=== PATIENT | male | born 1955 | race Caucasian/White ===

== ENCOUNTER → 2016-04-06 | Day surgery (SDC) | payer MEDICARE ==
[~2016-04-06] VITALS: Ht 198.1 cm; Wt 133.4 kg
[~2016-04-06] MED LIST: ASCO500C6 PO; COLC0.6C3 PO; CYAN100T PO; MELO-259 PO; Sodium Chloride LOK Flush 10 mL Syringe IV PRN; TEST200V20 IM; VALA1000 PO; VALA100026 PO; fentaNYL-PF 50 mCg/mL 2 mL Inj IVPUSH PRN
[2016-04-06 10:06] VITALS: BP 148/88; PULSE 77; RESP 16; O2SAT 100
[2016-04-06] MEDS: 0.9% Sodium Chloride 1,000 ML IV SCH ×4 (10:12→10:54)
[2016-04-06 10:58] VITALS: BP 143/83; PULSE 67; RESP 16; O2SAT 98
[2016-04-06 11:08] VITALS: BP 140/76; PULSE 64; RESP 16; O2SAT 97
[2016-04-06 11:18] VITALS: BP 133/76; PULSE 70; RESP 16; O2SAT 99
--- NOTE | 2016-04-06 14:52 | ENDO ---
[address] [address] ENDOSCOPY PROCEDURE PATIENT: EILEEN SAMPSON : 1955 MR#: [id number] ADMIT: 04/06/2016 JOB ID: [id number] DATE: 04/06/2016 PRIMARY PROVIDER: Drea Jordan. PROCEDURE: Colonoscopy. INDICATIONS: A 60-year-old male who reports a past history of colon polyps. EQUIPMENT: PCF H 180 AL. SEDATION: 1. 7 mg Versed. 2. 175 mcg fentanyl. COMPLICATIONS: None identified. BOWEL PREPARATION: Fair, adequate examination. PROCEDURAL INFORMATION: After the risks and benefits were explained, written and verbal informed consent was obtained. The patient was brought into the endoscopy suite and placed into the left lateral decubitus position. Sedation was achieved as above. A digital rectal examination accomplished. No significant pathology appreciated. The scope was introduced into the rectum and advanced to the cecum as identified by the appendiceal orifice and ileocecal valve. The scope was slowly withdrawn to carefully examine the mucosa for any defects or lesions. Retroflexed views were accomplished in the rectum. The colon was decompressed. The scope removed from the patient who tolerated the procedure well. FINDINGS: Moderate diverticulosis was seen throughout the left colon. No significant polyps, mass lesions or inflammatory features identified throughout including retroflexed views from within the rectum. There was a small perhaps 8 mm classic lipomatous focus in the mid ascending colon. ENDOSCOPIC DIAGNOSES: 1. Small ascending colon lipoma. 2. Diverticulosis. RECOMMENDATIONS: Considering personal history of colon polyps, repeat colonoscopy five years.
== END | disposition home or self-care (01) ==
LOC: END 00:53
PROVIDERS: ATTEND Internal Medicine Gastroenterology
DX: Z12.11 Encounter for screening for malignant neoplasm of colon (principal); D12.2 Benign neoplasm of ascending colon; K57.30 Diverticulosis of large intestine without perforation or abscess without bleeding; Z86.010 Personal history of colon polyps; Z80.0 Family history of malignant neoplasm of digestive organs; J45.909 Unspecified asthma, uncomplicated; G43.009 Migraine without aura, not intractable, without status migrainosus; M10.9 Gout, unspecified; G47.00 Insomnia, unspecified; E29.1 Testicular hypofunction; M19.90 Unspecified osteoarthritis, unspecified site; Z87.891 Personal history of nicotine dependence
CPT/HCPCS: 99153; G0105; G0500; J2250; J3010; J7030